=== PATIENT | male | born 1995 | race Caucasian/White ===

== ENCOUNTER 2016-10-20 21:19 | Emergency (ER) | payer OTHER ==
[~2016-10-20] VITALS: Ht 177.8 cm; Wt 83.9 kg
[2016-10-20 22:13] VITALS: BP 118/77
[2016-10-20] MEDS ORDERED: FAMCICLOVIR500 M1 PO (23:38)
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
== END 2016-10-20 23:43 ==
LOC: ERH 21:19
DX: B02.30 Zoster ocular disease, unspecified (principal)